=== PATIENT | female | born 1995 | race Two or more races ===

== ENCOUNTER 2019-08-21 09:35 | Inpatient (IN) | payer MEDICAID ==
[~2019-08-21] VITALS: Ht 160 cm; Wt 90.3 kg
[2019-08-21] MEDS ORDERED: LACT. RINGERS/OXYTOCIN 20UNITS 1,000 ML IV SCH (09:46)
[2019-08-21] MEDS ORDERED: LACT. RINGERS/OXYTOCIN 20UNITS 1,000 ML IV ONE (09:49)
[2019-08-21] MEDS ORDERED: PHISODERM TOP SOLN 240ML BTL TOP PRN (10:00)
[2019-08-21] MEDS ORDERED: DERMOPLAST 60ML BOTTLE TOP PRN (10:00)
[2019-08-21] MEDS ORDERED: WITCH HAZEL-GLYCERIN PAD TOP PRN (10:00)
[2019-08-21] MEDS ORDERED: METHYLERGONOVINE MALEATE 0.2 MG/ML AMP IM PRN (10:00)
[2019-08-21] MEDS ORDERED: LIDOCAINE 2%HCL (LOCAL ANESTH.) INJ 20ML MDV ID ONE (10:00)
[2019-08-21] MEDS ORDERED: FERR1TAB36 PO (10:31)
[2019-08-21] MEDS ORDERED: PREN-153 OR (10:32)
[2019-08-21 10:33] LABS: Basophils # (auto) 0 10 ^3/uL (0-0.2); Basophils % (auto) 0.2 % (0.0-2.0); Eosinophils # (auto) 0 10 ^3/uL (0-0.8); Eosinophils % (auto) 0.3 % (0.0-7.0); Hematocrit 34.3 % (36.0-46.0); Hemoglobin 11.4 g/dL (12.2-16.2); Lymphocytes # (auto) 2.2 10 ^3/uL (0.4-5.4); Lymphocytes % (auto) 16.6 % (10.0-50.0); Mean Corpuscular Hemoglobin 29.9 pg (28.0-32.0); Mean Corpuscular Hgb Conc. 33.3 g/dL (32.0-36.0); Monocytes # (auto) 0.4 10 ^3/uL (0-1.3); Neutrophils # (auto) 10.6 10 ^3/uL (1.6-8.6); Neutrophils % (auto) 79.9 % (37.0-80.0); Platelet Count (auto) 289 10^3/uL (140-450); Red Blood Cells 3.81 10^6/uL (4.0-5.20); Red Cell Distribution Width 13.6 % (11.8-14.3); White Blood Cell 13.3 10^3/uL (4.4-10.8)
[2019-08-21 10:35] LABS: Urine Bacteria NONE SEEN /hpf (None Seen); Urine Blood 2+ /uL (Negative); Urine Specific Gravity 1.005 (1.001-1.035); Urine WBC 1 /hpf (0 - 5)
[2019-08-21 10:49] LABS: INR 0.96 (0.9-1.15); Partial Thromboplastin Time 24.4 sec (23.64-32.05)
[2019-08-21 10:52] LABS: Albumin 2.6 g/dL (3.4-5.0); Calcium 8.8 mg/dL (8.5-10.1); Potassium 3.4 mmol/L (3.5-5.1)
[2019-08-21 10:54] LABS: Amphetamine Screen, Urine NEGATIVE (NEGATIVE); Barbiturate Scree,Urine NEGATIVE (NEGATIVE); Benzodiazephine Screen, Urine NEGATIVE (NEGATIVE); Cannabinoid Screen, Urine NEGATIVE (NEGATIVE); Cocaine Screen, Urine NEGATIVE (NEGATIVE); Opiate Scree,Urine NEGATIVE (NEGATIVE); Phencyclidine Screen, Urine NEGATIVE (NEGATIVE)
[2019-08-21 10:56] LABS: BUN/Creatinine Ratio 8.6; Bilirubin, Total 0.8 mg/dL (0.2-1.0); Total Protein 6.8 g/dL (6.4-8.2)
[2019-08-21 10:58] LABS: Alcohol, Urine < 3.0 mg/dL (0-5)
[2019-08-21] MEDS ORDERED: IBUPROFEN 600 MG TAB PO PRN (11:00)
[2019-08-21] MEDS ORDERED: IBUPROFEN 800 MG TAB PO PRN (12:15)
--- NOTE | 2019-08-21 12:20 | NUR ---
Report received from Justus Moreno RN
[2019-08-21 12:24] VITALS: BP 127/81
--- NOTE | 2019-08-21 12:48 | NUR ---
Ambulation: Patient OOB with standby assistance by RN. Patient ambulated to bathroom with steady gait. Patient able to void without difficulty. [facility] teaching provided with returned demonstration by patient. Clean gown provided and bed linen changed. Patient ambulated back to bed with steady gait and no distress noted.
[2019-08-21 13:05] VITALS: BP 121/76
[2019-08-21] MEDS: ACETAMINOPHEN 325 MG TAB PO PRN (14:19)
[2019-08-21 15:35] VITALS: BP 119/68
--- NOTE | 2019-08-21 16:30 | NUR ---
DR. PLUMMER CALLED AND Cortez RICHEY TALKED TO DR. PLUMMER AND NEW ORDERS RECEIVED OKAY TO GIVE 800 MG/PO PRN Q8 HOURS FOR PAIN 7-10.
--- NOTE | 2019-08-21 16:45 | NUR ---
REPORT GIVEN TO Cortez RICHEY RN
--- NOTE | 2019-08-21 18:30 | NUR ---
Report given to Tyler Sanchez Addendum: 08/21/19 at 1834 by Eryn Carrasco RN Amended: Links added.
[2019-08-21 19:00] VITALS: BP 131/74
[2019-08-21 23:00] VITALS: BP 118/84
[2019-08-22] MEDS: IBUPROFEN 800 MG TAB PO PRN ×2 (00:10→16:06)
[2019-08-22 03:00] VITALS: BP 116/67
[2019-08-22 07:04] VITALS: BP 120/79
[2019-08-22 10:30] VITALS: BP 116/73
[2019-08-22] MEDS: ACETAMINOPHEN 325 MG TAB PO PRN ×2 (10:44→20:30)
--- NOTE | 2019-08-22 13:45 | NUR ---
BREAST PUMP BREAST PUMP AND SUPPLIES GIVEN TO PT AND EDUCATION PROVIDED ON USE. PT VERBALIZED UNDERSTANDING AND RETURN DEMONSTRATION ON PROPER USE OF BREAST PUMP. PT ENCOURAGED TO PUMP EVERY 2 TO 3 HR AND EDUCATED ON STORAGE OF BREAST MILK.
[2019-08-22 14:30] VITALS: BP 123/74
[2019-08-22 18:30] VITALS: BP 121/83
[2019-08-22 22:59] VITALS: BP 120/76
[2019-08-23] MEDS: IBUPROFEN 800 MG TAB PO PRN (02:18)
[2019-08-23 02:31] VITALS: BP 128/77
[2019-08-23 05:07] LABS: RPR Non Reactive (Non Reactive)
[2019-08-23 06:40] VITALS: BP 113/65
--- NOTE | 2019-08-23 12:30 | NUR ---
Discharge: Discharge instructions given as ordered. Pt encouraged to follow up with [facility] as instructed. All questions and concerns addressed. Patient verbalized understanding. Medication reconciliation completed and copy given to patient. All required/requested vaccines given and copies of vaccinations given to patient. Patient encouraged to prepare to depart unit.
--- NOTE | 2019-08-23 13:20 | NUR ---
Discharge: Patient taken to vehicle via ambulation with all personal belongings, accompanied by staff activated sludge operator Naveen and family member. No distress noted at time of departure, no adverse changes in status since initial assessment.
== END 2019-08-23 13:20 | disposition home or self-care (01) | DRG 560 ==
LOC: LDRP 09:35
PROVIDERS: ADMIT Obstetrics & Gynecology; ATTEND Obstetrics & Gynecology
PROC: 10E0XZZ Delivery of Products of Conception, External Approach (ICD-10-PCS; principal; 2019-08-21)
PROC: 0HQ9XZZ Repair Perineum Skin, External Approach (ICD-10-PCS; 2019-08-21)
DX: O69.81X0 Labor and delivery complicated by cord around neck, without compression, not applicable or unspecified (principal); O62.3 Precipitate labor; Z37.0 Single live birth; Z3A.37 37 weeks gestation of pregnancy; O70.0 First degree perineal laceration during delivery
CPT/HCPCS: 36415; 59025; 59409; 80053; 80307; 81001; 84112; 84550; 85025; 85610; 85730; 86592; 86850; 86900; 86901; 96365; 96366; 96372; G0378; J2590